=== PATIENT | male | born 1980 | race African-American/Black ===

== ENCOUNTER 2021-03-06 22:41 | Emergency (ER) | payer MEDICAID ==
[~2021-03-06] VITALS: Ht 177.8 cm; Wt 95.3 kg
[2021-03-06 22:54] VITALS: BP_SYST 138
[2021-03-07] MEDS ORDERED: fentaNYL CITRATE/PF 100 MCG/2 ML AMP IVP ONE
[2021-03-07 00:45] LABS: CALCIUM 9.2 mg/dL (8.4-11.0); CREATININE 1.07 mg/dL (0.55-1.30); POTASSIUM 3.7 mmol/L (3.5-5.1)
[2021-03-07 00:47] LABS: BASOPHILS % (AUTO) 0.4 % (0.0-2.0); EOSINOPHILS # (AUTO) 0.1 K/uL (0.0-0.4); EOSINOPHILS % (AUTO) 1.3 % (0.0-4.0); HEMATOCRIT 40.3 % (36-54); HEMOGLOBIN 13.5 g/dL (14.0-18.0); LYMPHOCYTES % (AUTO) 18.3 % (20.5-51.5); MEAN CORPUSCULAR HEMOGLOBIN 34 pg (27-31); MEAN CORPUSCULAR HGB CONC 33 % (32-36); MEAN CORPUSCULAR VOLUME 103 fL (79.0-98.0); MONOCYTES % (AUTO) 9.1 % (1.7-9.3); NEUTROPHILS # (AUTO) 7.9 K/uL (1.8-7.7); NEUTROPHILS % (AUTO) 70.9 % (40.0-70.0); PLATELET COUNT (AUTO) 302 K/uL (130-430); RED BLOOD CELL COUNT(AUTO) 3.93 MIL/uL (4.2-6.2); RED CELL DISTRIBUTION WIDTH 12.8 % (9.0-15.0); WHITE BLOOD COUNT (AUTO) 11.1 K/uL (4.8-10.8)
[2021-03-07 00:51] LABS: ALBUMIN 3.6 g/dL (3.4-4.8); TOTAL BILIRUBIN 0.3 mg/dL (0.0-1.0)
[2021-03-07 00:59] LABS: PROTHROMBIN TIME 10.3 SECS (9.5-12.5)
[2021-03-07 01:59] VITALS: BP_SYST 132
== END 2021-03-07 01:59 | disposition home or self-care (01) ==
LOC: SED 22:41
DX: S02.19XA Other fracture of base of skull, initial encounter for closed fracture (principal); S06.5X0A Traumatic subdural hemorrhage without loss of consciousness, initial encounter; W18.09XA Striking against other object with subsequent fall, initial encounter; Y93.89 Activity, other specified; Y92.89 Other specified places as the place of occurrence of the external cause; Y99.8 Other external cause status
CPT/HCPCS: 36415; 70450; 76376; 80053; 82550; 85025; 85610; 85730; 93005; 96374; 99285; J3010

== ENCOUNTER 2021-05-14 00:09 | Emergency (ER) | payer MEDICAID ==
[~2021-05-14] VITALS: Ht 175.3 cm; Wt 101.6 kg
[2021-05-14 00:23] VITALS: BP_SYST 141
--- NOTE | 2021-05-14 00:27 | NUR ---
Patient triaged and placed in waiting room. VSS and patient appears in no acute distress at this time. Accompanied by self, awaiting available bed, and MD notified of need for MSE.
--- NOTE | 2021-05-14 00:43 | NUR ---
Patient ambulatory to bed 8 for evaluation
--- NOTE | 2021-05-14 00:44 | NUR ---
Came in ER ambulatory this 40 year old male, AAOX4, breathing spontaneously at room air, not in distress noted. With chief complaints of bug bite at left inner forearm at 6pm, swelling and redness noted. No known medical/no surgical history. No known allergy
--- NOTE | 2021-05-14 01:02 | NUR ---
Eye pack applied at left inner forearm " bug bite site"
--- NOTE | 2021-05-14 02:20 | NUR ---
Seen and examined by Dr. Sherwood
[2021-05-14] MEDS ORDERED: HYDC2.5% TP (02:33)
[2021-05-14] MEDS ORDERED: CEPH250C PO (02:33)
[2021-05-14 02:42] VITALS: BP_SYST 132
--- NOTE | 2021-05-14 02:42 | NUR ---
Patient given written and verbal discharge instructions and verbalizes understanding. ER MD discussed with patient the results and treatment provided. Patient in stable condition. ID arm band removed. Rx of Cephalexin and hydrocortisone given. Patient educated on pain management and to follow up with PMD. Pain Scale 0/10. Opportunity for questions provided and answered. Medication side effect fact sheet provided.
== END 2021-05-14 02:42 | disposition home or self-care (01) ==
LOC: SED 00:09
DX: S50.862A Insect bite (nonvenomous) of left forearm, initial encounter (principal); Z79.899 Other long term (current) drug therapy; W57.XXXA Bitten or stung by nonvenomous insect and other nonvenomous arthropods, initial encounter; Y93.89 Activity, other specified; Y92.89 Other specified places as the place of occurrence of the external cause; Y99.8 Other external cause status
CPT/HCPCS: 99283

== ENCOUNTER 2023-01-29 12:24 | Emergency (ER) | payer OTHER, MEDICAID ==
[~2023-01-29] VITALS: Ht 177.8 cm; Wt 93.0 kg
[~2023-01-29 12:24] MED LIST: CEPH250C PO; HYDC2.5% TP
[2023-01-29 12:54] VITALS: BP_SYST 132
[2023-01-29 14:23] LABS: BILIRUBIN,URINE NEGATIVE (NEGATIVE); CLARITY/URINE CLEAR (CLEAR); COLOR,URINE YELLOW (YELLOW); GLUCOSE,URINE NEGATIVE (NEGATIVE); KETONES,URINE NEGATIVE (NEGATIVE); LEUKOCYTE ESTERASE ,URINE NEGATIVE (NEGATIVE); NITRITE, URINE NEGATIVE (NEGATIVE); PH,URINE 5.5 (5.0-8.0); PROTEIN URINE NEGATIVE (NEGATIVE); UROBILINOGEN,URINE 0.2 (0.2-1.0)
[2023-01-29 14:25] LABS: BLOOD, URINE TRACE (NEGATIVE)
[2023-01-29 14:31] LABS: BACTERIA,URINE None Seen /HPF (None Seen); MUCUS,URINE None Seen /LPF (None Seen); RBC,URINE NONE SEEN /HPF (0-3); WBC,URINE NONE SEEN /HPF (0-3)
[2023-01-29] MEDS ORDERED: KETOROLAC TROMETHAMINE 60 MG/2 ML VIAL IM ONE (16:00)
[2023-01-29] MEDS ORDERED: IBUP-1969 PO (16:56)
[2023-01-29] MEDS ORDERED: TRAM50TA2 PO (16:56)
[2023-01-29 17:14] VITALS: BP_SYST 134
== END 2023-01-29 17:52 | disposition home or self-care (01) ==
LOC: SED 12:24
DX: S39.012A Strain of muscle, fascia and tendon of lower back, initial encounter (principal); S69.92XA Unspecified injury of left wrist, hand and finger(s), initial encounter; S69.91XA Unspecified injury of right wrist, hand and finger(s), initial encounter; S89.92XA Unspecified injury of left lower leg, initial encounter; S89.91XA Unspecified injury of right lower leg, initial encounter; S09.90XA Unspecified injury of head, initial encounter; M25.461 Effusion, right knee; Z79.899 Other long term (current) drug therapy; V89.2XXA Person injured in unspecified motor-vehicle accident, traffic, initial encounter; Y93.89 Activity, other specified; Y92.89 Other specified places as the place of occurrence of the external cause; Y99.8 Other external cause status
CPT/HCPCS: 99285; 70450; 81000; 73110; 73564; 72131; 76376; 96372; J1885

== ENCOUNTER 2023-02-20 14:16 | Emergency (ER) | payer MEDICAID, OTHER ==
[~2023-02-20] VITALS: Ht 182.9 cm; Wt 90.7 kg
[~2023-02-20 14:16] MED LIST changes: +IBUP-1969 PO; +TRAM50TA2 PO
[2023-02-20 14:19] VITALS: BP_SYST 156
--- NOTE | 2023-02-20 14:20 | NUR ---
Placed in room 03 . Placed on cardiac/vascular sonographer, blood pressure machine and pulse oximeter. To gown for exam. Side rails up. Report given to NIKUNJ REGALADO.
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
[2023-02-20] MEDS ORDERED: KETOROLAC TROMETHAMINE 60 MG/2 ML VIAL IM ONE (14:30)
[2023-02-20] MEDS ORDERED: HYDROcodone/ACETAMIN 10-325 MG TAB PO ONE (14:30)
--- NOTE | 2023-02-20 15:08 | NUR ---
PT PLACED IN BED AT THIS TIME
[2023-02-20] MEDS ORDERED: IBUP-1971 PO (15:38)
[2023-02-20] MEDS ORDERED: TRAM50TA2 PO (15:38)
[2023-02-20] MEDS ORDERED: MORPHINE 4 MG INJ. 4 MG/ML VIAL IM ONE (15:45)
[2023-02-20] MEDS ORDERED: BACITRACIN 1 GM OINT TP ONE ×2 (16:10→16:13)
--- NOTE | 2023-02-20 17:27 | NUR ---
Patient given written and verbal discharge instructions and verbalizes understanding. ER MD discussed with patient the results and treatment provided. Patient in stable condition. educated on pain management and to follow up with PMD. Pain Scale [0]. Opportunity for questions provided and answered. Medication side effect fact sheet provided.
--- NOTE | 2023-02-22 14:48 | NUR ---
[employer] Operator re: homelessness Telephone call made to Yousif Bedoya, III, regarding his homelessness. I left a message with a friend, who advised that she would have him give me a call. At this time, it is unknown if the patient is homeless. Contact information for myself left with friend, Grace Terrell. At this time, I have been unable to confirm that the patient is or is not homeless.
== END 2023-02-20 17:27 | disposition home or self-care (01) ==
LOC: SED 14:16
DX: M25.571 Pain in right ankle and joints of right foot (principal); Z79.899 Other long term (current) drug therapy
CPT/HCPCS: 99283; 29515; 73610; 96372; J2270

== ENCOUNTER 2024-02-11 14:10 | Emergency (ER) | payer MEDICAID ==
[~2024-02-11] VITALS: Ht 175.3 cm; Wt 102.1 kg
[~2024-02-11 14:10] MED LIST changes: +IBUP-1971 PO
[2024-02-11 14:19] VITALS: BP_SYST 120; PULSE 89; RESP 18; TEMP 97.6; O2SAT 99
[2024-02-11 15:53] LABS: COVID19 ANTIGEN SOFIA FIA NEGATIVE (NEGATIVE)
[2024-02-11 15:54] LABS: INFLUENZA TYPE A Negative (NEGATIVE); INFLUENZA TYPE B NEGATIVE (NEGATIVE)
[2024-02-11] MEDS ORDERED: D-ME120S20 PO (16:00)
[2024-02-11 16:09] VITALS: BP_SYST 116; PULSE 71; RESP 16; TEMP 97.6; O2SAT 99
== END 2024-02-11 16:09 | disposition home or self-care (01) ==
LOC: SED 14:10
DX: B34.9 Viral infection, unspecified (principal); R05.9 Cough, unspecified; R09.89 Other specified symptoms and signs involving the circulatory and respiratory systems; J02.9 Acute pharyngitis, unspecified; Z79.899 Other long term (current) drug therapy; Z20.822 Contact with and (suspected) exposure to COVID-19
CPT/HCPCS: 36415; 71045; 99284

== ENCOUNTER 2024-03-16 13:23 | Emergency (ER) | payer MEDICAID ==
[~2024-03-16] VITALS: Ht 175.3 cm; Wt 99.8 kg
[~2024-03-16 13:23] MED LIST changes: +D-ME120S28 PO
[2024-03-16 13:48] VITALS: BP_SYST 131; PULSE 79; TEMP 98.3; O2SAT 95
[2024-03-16 15:34] LABS: INFLUENZA TYPE A Negative (NEGATIVE); INFLUENZA TYPE B NEGATIVE (NEGATIVE)
[2024-03-16] MEDS ORDERED: PSEU30TA36 PO (15:39)
[2024-03-16] MEDS ORDERED: ALBMDI INH (15:39)
[2024-03-16 15:50] VITALS: BP_SYST 127; PULSE 62; RESP 18; TEMP 97.7; O2SAT 97
== END 2024-03-16 15:50 | disposition home or self-care (01) ==
LOC: SED 13:23
DX: J40 Bronchitis, not specified as acute or chronic (principal); R05.9 Cough, unspecified; R09.89 Other specified symptoms and signs involving the circulatory and respiratory systems; Z79.899 Other long term (current) drug therapy; Z20.822 Contact with and (suspected) exposure to COVID-19
CPT/HCPCS: 36415; 71045; 99284